=== PATIENT | male | born 1960 | race African-American/Black ===

== ENCOUNTER 2016-07-02 11:26 | Inpatient (IN) | payer MEDICAID ==
[~2016-07-02] VITALS: Ht 185.4 cm; Wt 86.8 kg
--- NOTE | ~2016-07-02 | HEMODYNAMI ---
PATIENT:ELENA RAMOS MEDICAL RECORD: [id number] : 56 [id number] ADMISSION DATE: 07/02/16 Generatedon:07/03/201616:43 Patient name: ELENA RAMOS Patient #: [id number] SSN: [id number] : 1960 Date of study: 07/03/2016 Page: Of Hemodynamic Procedure Report Patient Data Patient Demographics Procedure consent was obtained First Name: ELENA Gender: Male Last Name: RICHARD : 1960 [facility] Initial: L Age: 55 year(s) Patient #: [id number] Race: Black SSN: [id number] Additional ID: [id number] Contact details [address]: [address] [place] [address] [address] State: [place] City: [place] Zip code: [address] Past Medical History Allergies: No known allergies Admission Admission Data Admission Date: 07/02/2016 Admission Time: 15:12 Arrival Date: 07/02/2016 Arrival Time: 0:00 Admit Source: Other Insurance Payor: Medicaid Room #: D.2106 Height (in.): 72 BSA: 1.96 (m2) Height (cm.): 182.88 BMI: 22.24 (kg/m2) Weight (lbs.): 164 Weight (kg.): 74.39 Lab Results Lab Result Date: 07/03/2016 Lab Result Time: 0:00 Biochemistry Name Units Result Min Max BUN mg/dl 37 --(----)-* 7 18 Creatinine mg/dl 1.8 --(----)-* 0.6 1.3 CBC Name Units Result Min Max Hemoglobin g/dl 12 *-(----)-- 13.5 17.5 Procedure Procedure Types Cath Procedure Diagnostic Procedure LH LH w/Coronaries PCI Procedure Coronary Stent Initial Procedure Description Procedure Date Procedure Date: 07/03/2016 Procedure Start Time: 16:19 Procedure End Time: 16:37 Procedure Staff Name Function Boy Hernandez MD Performing Physician Nanci Cruz RN Nurse Shahla Morel RT Monitor Lauro Zambrano RT Scrub Indication Angina Procedure Data Cath Procedure Fluoroscopy Diagnostic fluoroscopy Total fluoroscopy Time: 4.4 time: 4.4 min min Diagnostic fluoroscopy Total fluoroscopy dose: dose: 391.12 mGy 391.12 mGy Contrast Material Contrast Material Type Amount (ml) Isovue 370 81 Entry Location Entry Primary Successful Side Size Upsize Upsize Entry Closure Howell ccessful Closure Location (Fr) 1 (Fr) 2 (Fr) Remarks Device Remarks Radial Right 6 Fr Mechanical artery Short Compression Estimated blood loss: 5 ml Diagnostic catheters Device Type Used For End Catheter Placement Terumo Optitorque 5Fr Multi-vessel Harrington 4.5 catheter Angiography Procedure Complications No complications Procedure Medications Medication Administration Route Dosage Oxygen NC 2 l/min Lidocaine 2% added to field 20 Heparin Flush Bag added to field 2 bags (1000units/500ml NS) 0.9% NaCl I.V. 100 ml/hr Versed I.V. 1 mg Fentanyl I.V. 50 mcg Fentanyl I.V. 50 mcg Heparin Bolus I.V. 4000 units Integrilin (Bolus I.V. 6.8 ml 2mg/ml) Radial Cocktail I.A. 1 syringe (Verapomil 2mg/Nitro 400mcg/Heparin 1500units) Plavix P.O. 600 mg Hemodynamics Rest BSA: 1.96 (m2) HGB: 12 (g/dl) O2 Consumption: Estimated: 252.13 (ml/min) O2 Cons umption indexed: Estimated:128.64 (ml/min/m) Heart Rate: 98 (bpm) Pressure Samples Time Site Value (mmHg) Purpose Heart Use Rate(bpm) 16:22 LV 70/3,1 Snapshot 98 Snapshots Pre Cath Intra NCS Post Cath Vital Signs Time Heart Resp SPO2 NIBP (mmHg) Rhythm Pain Sedation Rate (ipm) (%) Status Level (bpm) 16:03:06 96 17 97 122/97(109) NSR 0 (11) 10(A) , No pain 16:08:05 92 17 95 105/69(83) NSR 0 (11) 10(A) , No pain 16:12:13 84 16 95 99/71(93) NSR 0 (11) 10(A) , No pain 16:16:23 78 15 95 61/45(54) NSR 0 (11) 9(A) , No pain 16:20:08 88 20 100 132/97(117) NSR 0 (11) 9(A) , No pain 16:24:12 94 16 100 109/79(101) NSR 0 (11) 9(A) , No pain 16:28:16 91 15 99 99/84(95) NSR 0 (11) 9(A) , No pain 16:32:18 90 15 100 101/79(90) NSR 0 (11) 9(A) , No pain 16:36:19 90 16 99 114/82(86) NSR 0 (11) 10(A) , No pain Medications Time Medication Route Dose Verified Delivered Reason Note s Effectiveness by by 16:04:40 Oxygen NC 2 l/min Boy Buffie used for David Cruz RN procedure 16:04:47 Lidocaine 2% added 20ml Boy Buffie used for to vial David Cruz RN procedure field 16:04:54 Heparin Flush added 2 bags Boy Buffie used for Bag to David Cruz RN procedure (1000units/500ml field NS) 16:05:04 0.9% NaCl I.V. 100 Boy Buffie Per physician ml/hr David Cruz RN 16:13:41 Versed I.V. 1 mg Boy Buffie for sedation David Cruz RN 16:13:47 Fentanyl I.V. 50 mcg Boy Buffie for sedation David Cruz RN 16:20:05 Fentanyl I.V. 50 mcg Boy Buffie for sedation David Cruz RN 16:20:51 Radial Cocktail I.A. 1 Boy Buffie for (Verapomil syringe David Cruz RN vasodilation 2mg/Nitro 400mcg/Heparin 1500units) 16:26:14 Heparin Bolus I.V. 4000 Boy Buffie for veri fied units David Cruz RN anticoagulation with dr hernandez 16:27:49 Integrilin I.V. 6.8 ml Boy Buffie for (Bolus 2mg/ml) David Cruz RN antiplatelet therapy 16:42:18 Plavix P.O. 600 mg Boy Buffie for David Cruz RN antiplatelet therapy Procedure Log Time Note 15:40:59 Lauro Zambrano RT(R) sent for patient. Start room use. 15:50:18 Diagnostic Cath Status : Elective 15:50:54 Indication : Angina 15:51:06 Time tracking: Regular hours 15:51:10 Plan of Care:Hemodynamics will remain stable., Cardiac rhythm will remain stable., Comfort level will be maintained., Respiratory function will remain adequate., Patient/ family verbilizes understanding of procedure., Procedure tolerated without complication., Recovers from procedure without complications.. 15:51:18 [facility] Med [facility] Alert and oriented. Tansferred to table in Supine position. 15:51:19 Warm blankets applied, and faisal hugger turned on for patient comfort. 15:51:19 Correct patient and procedure confirmed by team. 15:51:21 Signed procedure consent form obtained from patient. 16:02:09 ECG and BP/O2 sat monitors applied to patient. 16:02:10 Vital chart was started 16:02:44 Lab Result : Hemoglobin 12 g/dl 16:02:44 Lab Result : Creatinine 1.8 mg/dl 16:02:44 Lab Result : BUN 37 mg/dl 16:04:40 Oxygen 2 l/min NC was given by Nanci Cruz RN; used for procedure; 16:04:47 Lidocaine 2% 20ml vial added to field was given by Nanci Cruz RN; used for procedure; 16:04:54 Heparin Flush Bag (1000units/500ml NS) 2 bags added to field was given by Nanci Cruz RN; used for procedure; 16:05:04 0.9% NaCl 100 ml/hr I.V. was given by Nanci Cruz RN; Per physician; 16:05:37 Baseline sample Acquired. 16:05:42 Rhythm: sinus rhythm 16:05:43 Full Disclosure recording started 16:05:49 H&P Date Dictated: 07/03/2016 New H&P dictated by physician.. 16:05:50 Pre-procedure instructions explained to patient. 16:05:51 Pre-op teaching completed and patient verbalized understanding. 16:05:52 Family in waiting room. 16:05:54 Patient NPO since Midnight. 16:05:59 Is the patient allergic to Iodine/contrast media? No. 16:06:00 Was the patient premedicated? No 16:11:25 Is patient on blood thinner?No 16:11:28 Patient diabetic? Yes. 16:11:30 If diabetic: On Metformin? No 16:11:33 Previous problem with sedation/anesthesia? No ? 16:11:35 Snore? No 16:11:37 Sleep apnea? No 16:11:38 Deviated septum? No 16:11:38 Opens mouth fully? Yes 16:11:39 Sticks out tongue? Yes 16:11:41 Airway obstruction? No ? 16:11:46 Dentures? Yes out 16:11:49 Pre procedure: right dorsailis pedis pulse 1+ Palpable, but thready & weak; easily obliterated 16:11:52 Patient pain scale 0/10 ?. 16:12:06 IV patent on arrival in right wrist with 0.9% NaCl at [facility]. 16:12:10 Lab results completed and on chart. 16:12:14 Right Radial & Right Groin area was prepped with chlora-prep and draped in sterile fashion 16:12:16 Alarms reviewed by R. N. 16:12:16 Sharps counted by scrub and verified by R.N. 16:12:18 Physician arrived 16:12:18 --------ALL STOP TIME OUT------ 16:12:19 Final Timeout: patient, procedure, and site verified with staff and physician. All members of the team are in agreement. 16:12:21 Right Radial & Right Groin site verified by team. 16:12:24 Physical assessment completed. ASA score P 3 - A patient with severe systemic disease as per Boy Hernandez MD. 16:12:27 Sedation plan: IV Moderate Sedation Versed, Fentanyl 16:12:31 Use device set Radial Dx 16:12:32 Acist Syringe opened to sterile field. 16:12:32 Cardinal Cath Pack opened to sterile field. 16:12:32 Bag Decanter opened to sterile field. 16:12:33 Terumo 6Fr Slender Glidesheath opened to sterile field. 16:12:33 St John 260cm J .035 wire opened to sterile field. 16:12:34 Acist Hand Control opened to sterile field. 16:12:34 Acist Manifold opened to sterile field. 16:12:35 Tegaderm 4 x 4 opened to sterile field. 16:12:36 IV Extension Set opened to sterile field. 16:13:41 Versed 1 mg I.V. was given by Nanci Cruz RN; for sedation; 16:13:47 Fentanyl 50 mcg I.V. was given by Nanci Cruz RN; for sedation; 16:13:52 Admit Source: Other 16:13:54 Arrival Date: 07/02/2016 12:00:00 AM 16:14:19 Insurance Payor : Medicaid 16:18:03 Patient Height : 182.88 cm 16:18:06 Patient Weight : 74.39 kg 16:18:16 Procedure started. 16:19:25 Local anesthetic to right radial artery with Lidocaine 2% by Boy Hernandez MD.INITIAL ACCESS ONLY 16:20:05 Fentanyl 50 mcg I.V. was given by Nanci Cruz RN; for sedation; 16:20:29 A 6 Fr Short sheath was inserted into the Right Radial artery 16:20:51 Radial Cocktail (Verapomil 2mg/Nitro 400mcg/Heparin 1500units) 1 syringe I.A. was given by Nanci Cruz RN; for vasodilation; 16:21:13 A [employer] Optitorque 5Fr Harrington 4.5 catheter was advanced over the wire and used for Multi-vessel Angiography. 16:22:18 LV hemodynamics recorded. 16:22:19 LV gram done using ANDERS 16:22:21 Injector settings: Ml/sec: 5, Volume: 15, 16:22:32 EF : 15 % 16:22:52 LCA angiography performed. 16:23:58 Injector settings: Ml/sec: 3, Volume: 6, 16:24:02 RCA angiography performed. 16:24:06 Injector settings: Ml/sec: 3, Volume: 6, 16:24:17 Catheter removed. 16:24:18 Proceeding to intervention. 16:24:32 Roberts Whisper J 300cm 0.014 guide wire opened to sterile field. 16:24:33 [employer] BasixCompak Inflation Kit opened to sterile field. 16:26:14 Heparin Bolus 4000 units I.V. was given by Nanci Cruz RN; for anticoagulation; verified with dr hernandez 16:26:26 Cordis 6FR XBLAD 3.5 guide catheter opened to sterile field. 16:26:38 6 Fr xblad 3.5 guide catheter was inserted over the wire 16:26:53 Phoseon Technologyisper wire advanced. 16:27:49 Integrilin (Bolus 2mg/ml) 6.8 ml I.V. was given by Nanci Cruz RN; for antiplatelet therapy; 16:28:05 Wire advanced across lesion. 16:28:11 Inflation number: 1 A Sumner Sci Dooly 2.5 X 20 balloon was prepped and advanced across the Mid CX, then inflated to 13 PAUL for 0:10 (min:sec). 16:29:24 Wire removed. 16:30:16 Inflation Number: 2 A Promus Premier OTW 2.5 x 38 stent was prepped and advanced across the Mid CX. The stent was deployed at 17 PAUL for 0:10 (min:sec). 16:31:16 Stent catheter was removed intact over wire. 16:32:40 Inflation Number: 1 A Promus Premier OTW 2.5 x 24 stent was prepped and advanced across the Prox CX. The stent was deployed at 17 PAUL for 0:10 (min:sec). 16:33:58 Stent catheter was removed intact over wire. 16:33:59 Wire removed. 16:34:00 Guide catheter removed. 16:34:10 Terumo TR Band Standard opened to sterile field. 16:36:29 Sheath removed intact; hemostasis achieved with Mechanical Compression to the Right Radial artery. 16:36:31 Procedure ended.(Physican Out) 16:36:36 Fluoroscopy time 04.40 minutes. 16:36:43 Flurop Dose total: 391.12 16:36:43 Fluoroscopy dose: 391.12 mGy 16:36:54 Contrast amount:Isovue 370 81ml. 16:36:55 Sharps counted by scrub and verified by R.N. 16:36:57 TR band inflated with 10cc of air. 16:37:06 Post right radial artery:stable 16:37:08 Post Procedure Pulses reassessed and unchanged 16:37:11 Post procedure rhythm: unchanged. 16:37:13 Estimated blood loss: 5 ml 16:37:15 Post procedure instruction explained to patient.Patient verbalizes understanding. 16:37:18 Patient needs reinforcement of post procedure teaching. 16:37:27 Procedure type changed to Cath procedure, Diagnostic procedure, LHC, LHC w/Coronaries, PCI procedure, Coronary Stent Initial 16:37:28 Procedure and supply charges have been captured, reviewed, submitted and are correct. 16:37:33 Procedure Complication : No complications 16:37:35 Vital chart was stopped 16:37:36 See physician's report for complete and final results. 16:37:[address] [facility]. 16:37:[address] [facility] with Stretcher. 16:37:52 Procedure ended. 16:37:52 Full Disclosure recording stopped 16:38:09 ACC-PCI Only Patient was given prescriptions, or instructed by Boy Hernandez MD to start/continue the following medications upon discharge: Plavix 16:38:10 End room use (Document Last) 16:42:18 Plavix 600 mg P.O. was given by Nanci Cruz RN; for antiplatelet therapy; Intervention Summary Intervention Notes Time ActionType Lesion and Equipment Action# Pressure Duration Attributes Used 16:28:11 Inflate Mid CX Sumner 1 13 00:10 balloon Sci Dooly 2.5 X 20 balloon 16:30:16 Place stent Mid CX Promus 2 17 00:10 Premier OTW 2.5 x 38 stent 16:32:40 Place stent Prox CX Promus 1 17 00:10 Premier OTW 2.5 x 24 stent Device Usage Item Name Manufacture Quantity Catalog Number Hospital Part Current Mini mal Lot# / Charge Number Stock Stock Serial# Code Acist Acist 1 51889 209500 350059 382768 20 Syringe Medical Systems Inc Cardinal Cardinal 1 [id number] 414863 58338 056504 5 Cath Pack Health Bag Microtek 1 2001S 527071 74464 775548 5 [employer] Terumo 6Fr Terumo 1 [id number] 727632 050016 935553 [address] [facility] 1 799116 841637 146471 624155 30 260cm J .035 wire Acist Hand Acist 1 33387 132095 661182 610250 5 Control Medical Systems Inc Acist Acist 1 33911 372158 017681 574906 5 Manifold Medical Systems Inc Tegaderm 4 3M 1 1626W 468846 065320 753074 5 x 4 IV Hospira 1 90837-01 638421 68786 100268 5 Extension Set Terumo Terumo 1 40-7559 522948 136434 940293 5 Optitorque 5Fr Harrington 4.5 catheter Roberts Roberts 1 [id number] 332826 985007 461645 5 Whisper J Vascular 300cm 0.014 guide wire Merit Merit 1 HY9679 627285 307510 612783 15 [employer] Medical Inflation Kit Cordis 6FR Cardinal 1 [id number] 132696 482338 266703 10 XBLAD 3.5 Health guide catheter Sumner Sci Sumner 1 [id number] 450449 350565 899812 1 [id number] Dooly Julep 2.5 X 20 balloon Promus Sumner 1 [id number] 346732 443348 5 [id number] Premier OTW Scientific 2.5 x 38 stent Promus Sumner 1 [id number] 930531 820833 5 [id number] Premier OTW Scientific 2.5 x 24 stent Terumo TR Terumo 1 [id number] 028540 793556 438998 40 Band Standard Signature Audit [place] Stage Time Signature Unsigned Intra-Procedure 07/03/2016 Shahla Morel 4:43:48 PM RT(R) Signatures Monitor : Shahla Morel RT Signature : Date : Time : [id number] [place] [address]
[~2016-07-02 11:26] MED LIST: ALPHAGAN P15 ML EACH EYE; ASPIRIN81 MG PO; BACTRIM DS TABL1 TAB PO; COREG 3.1253.125 MG PO; COREG6.25 MG PO; EFFIENT10 MG PO; FLUTICASONE PRO16 GM NASAL; GLUCOPHAGE500 MG PO; GLYBURIDE2.5 MG PO; GLYBURIDE5 MG PO; HYDROCODON-ACE1 EAC7 PO; HYDROCODONE-APA1 TAB PO; K-DUR20 MEQ PO; LASIX20 MG PO; LASIX40 MG PO; PEPTO-BISMOL262 M1 PO; PLAVIX75 MG PO; PRAVACHOL20 MG PO; PROTONIX40 MG PO; VIBRAMYCIN 100100 MG PO; ZYLOPRIM100 MG PO
[2016-07-02 12:14] LABS: BASOPHILS 0.3 % (0.0-2.0); EOSINOPHILS 2.1 % (0-7); HEMATOCRIT 40.9 % (42.0-54.0); HEMOGLOBIN 12.6 g/dL (13.5-17.5); IMMATURE GRANULOCYTES 0.2 % (0-5); LYMPHOCYTES 14.1 % (15-50); MCH 27.1 pg (26.0-34.0); MCHC 30.8 g/dL (31.0-37.0); MONOCYTES 8.5 % (2-11); NEUTROPHILS 74.8 % (40-80); PLATELET COUNT 186 10x3/uL (130-400); RBC 4.65 10x6/uL (4.20-6.10); WBC 6.1 10x3/uL (4.8-10.8)
[2016-07-02 12:53] LABS: ALBUMIN 3.1 g/dL (3.4-5.0); ALKALINE PHOSPHATASE 301 U/L (46-116); ALT (SGPT) 45 U/L (10-68); CALCIUM 9.1 mg/dL (8.5-10.1); CARBON DIOXIDE 30.7 mmol/L (21.0-32.0); CHLORIDE - SERUM 97 mmol/L (98-107); CKMB 1.1 U/L (0.0-3.6); CREATINE KINASE 56 UL (21-232); MAGNESIUM - SERUM 2.3 mg/dL (1.8-2.4); POTASSIUM - SERUM 3.8 mmol/L (3.5-5.1); PRO BNP 9448 pg/mL (0-125); PROTEIN - SERUM 7.2 g/dL (6.4-8.2); SODIUM 136 mmol/L (136-145); UREA NITROGEN 38 mg/dL (7-18); eGFR NON AFRICAN AMERICAN 37 mL/min (90-120)
[2016-07-02 13:06] LABS: CALC OSMOLALITY 299 mosm/kg (275-300); GLUCOSE 434 mg/dL (74-106)
--- NOTE | 2016-07-02 16:21 | NUR ---
TRANSFER FROM ER. OREINTED TO ROOM. CALL LIGHT IN REACH. WILL CONT. PLAN OF CARE.
[2016-07-02] MEDS ORDERED: GLYBURIDE5 M1 PO (16:25)
[2016-07-02] MEDS ORDERED: GLUCOPHAGE500 MG PO (16:27)
[2016-07-02 16:31] VITALS: BP 116/92; BMI 21.6
[2016-07-02] MEDS ORDERED: COREG 3.1253.125 MG PO (16:43)
[2016-07-02] MEDS ORDERED: METOLAZONE5 MG PO (16:47)
[2016-07-02] MEDS ORDERED: MOBIC7.5 MG PO (16:48)
[2016-07-02 20:00] VITALS: BP 115/77
[2016-07-02 20:08] LABS: CKMB 1.4 U/L (0.0-3.6); CREATINE KINASE 50 UL (21-232)
[2016-07-02 20:09] LABS: TROPONIN-I 0.325 ng/mL (0.000-0.060)
[2016-07-03] VITALS: BP 113/89; BP 116/75
--- NOTE | 2016-07-03 00:25 | NUR ---
VITAMIN MANAGER AT BEDSIDE TO OBTAIN VITALS, CALL LIGHT IN REACH. WILL CONTINUE WITH PLAN OF CARE.
[2016-07-03 00:29] LABS: CKMB 1.6 U/L (0.0-3.6); CREATINE KINASE 52 UL (21-232)
--- NOTE | 2016-07-03 00:29 | NUR ---
RESTING IN BED. ALERT ORIENTED CONVERSANT. STATES THAT HE IS LEGALLY BLIND. NO ACUTE DISTRESS NOTED. NO DISTRESS NOTED.
[2016-07-03 00:30] LABS: TROPONIN-I 0.335 ng/mL (0.000-0.060)
[2016-07-03 02:36] LABS: APPEARANCE CLEAR (CLEAR); BILIRUBIN NEGATIVE (NEGATIVE); COLOR DK YELLOW (YELLOW); GLUCOSE 1000 mg/dL (NEGATIVE); KETONE NEGATIVE (NEGATIVE); NITRITE NEGATIVE (NEGATIVE); PROTEIN 2+ mg/dL (NEGATIVE)
[2016-07-03 02:44] LABS: BACTERIA FEW /hpf (NONE SEEN); EPITHELIAL CELLS 0-5 /hpf (0-5); LEUKOCYTE ESTERASE TRACE (NEGATIVE); RED CELLS - URINE 0-5 /hpf (0-5)
[2016-07-03 02:45] LABS: HYALINE CAST 0-5 /lpf (NONE SEEN); MUCUS <1+ /lpf (NONE SEEN)
[2016-07-03 06:16] LABS: BASOPHILS 0.3 % (0.0-2.0); EOSINOPHILS 2.1 % (0-7); LYMPHOCYTES 17.5 % (15-50); MCH 27.5 pg (26.0-34.0); MCHC 31.6 g/dL (31.0-37.0); MONOCYTES 11.5 % (2-11); NEUTROPHILS 68.6 % (40-80); PLATELET COUNT 166 10x3/uL (130-400); RBC 4.37 10x6/uL (4.20-6.10); RDW 14.9 % (11.5-14.5); WBC 5.7 10x3/uL (4.8-10.8)
[2016-07-03 06:52] LABS: CALCIUM 9.6 mg/dL (8.5-10.1); CARBON DIOXIDE 29.6 mmol/L (21.0-32.0); CHLORIDE - SERUM 100 mmol/L (98-107); CKMB 1.4 U/L (0.0-3.6); CREATINE KINASE 46 UL (21-232); CREATININE - SERUM 1.8 mg/dL (0.6-1.3); MAGNESIUM - SERUM 2.2 mg/dL (1.8-2.4); PHOSPHOROUS 3.1 mg/dL (2.5-4.9); POTASSIUM - SERUM 3.8 mmol/L (3.5-5.1); SODIUM 137 mmol/L (136-145); UREA NITROGEN 37 mg/dL (7-18); eGFR NON AFRICAN AMERICAN 41 mL/min (90-120)
[2016-07-03 06:53] LABS: CALC OSMOLALITY 291 mosm/kg (275-300); GLUCOSE 261 mg/dL (74-106); TROPONIN-I 0.284 ng/mL (0.000-0.060)
--- NOTE | 2016-07-03 07:40 | NUR ---
ASSESSMENT DONE. PT SLEEPING. APPEARS COMFORTABLE. RESP EVEN AND UNLABORED. CALL LIGHT WITH IN REACH. WILL CONT. TO MONITOR.
[2016-07-03 08:00] VITALS: BP 111/80
--- NOTE | 2016-07-03 09:22 | NUR ---
CONSENTS SIGNED FOR HEART CATH AND BLOOD PRODUCTS. NURSE READ CONSENTS TO PT IN WHICH PT AGREED AND SIGNED.
--- NOTE | 2016-07-03 09:41 | NUR ---
RESP UL ON . RESTS IN BED WITH EYES CLOSED. CALL LIGHT IN REACH. WILL CONT. PLAN OF CARE.
--- NOTE | 2016-07-03 10:54 | CN ---
PATIENT NAME:ELENA RAMOS MEDICAL RECORD: [id number] : 56 LOCATION:[facility].2106 ADMIT DATE: 07/02/16 ACCOUNT: [id number] CONSULTING PHYSICIAN: ISAIAS RAMSAY MD REFERRING PHYSICIAN: VINNIE PERSON M.D. DATE OF CONSULTATION: 07/03/2016 Surgical Consultation CONSULTING PHYSICIAN: Isaias Ramsay MD REQUESTING PHYSICIAN: Vinnie Person MD REASON FOR CONSULTATION: Right lower extremity venous stasis ulcer. HISTORY OF PRESENT ILLNESS: Mr. Ramos is a 55-year-old -[place] male who was admitted to the hospital yesterday for CHF exacerbation and worsening shortness of breath. According to the patient and his medical record, he was recently fired by his primary care physician and he has run out of his medications. He has a history of cardiomyopathy and CHF as well as uncontrolled diabetes and acute kidney injury. His main complaint in the Emergency Room yesterday was chest pain at rest. He says the pain waxes and wanes. It has improved now. He also complains of worsening lower extremity edema and new right lower extremity wound. PAST MEDICAL HISTORY: Multiple sclerosis, glaucoma, blindness, diabetes, coronary artery disease, and congestive heart failure, chronic kidney disease, hypertension, cardiomyopathy. PAST SURGICAL HISTORY: Cardiac stents. He has had a left toe amputation. ALLERGIES: No known drug allergies. MEDICATIONS: Include allopurinol, pravastatin, Lasix, aspirin, glyburide, metformin, carvedilol, meloxicam, Protonix and hydrocodone. FAMILY HISTORY: Cardiovascular disease in his parents as well as his siblings. SOCIAL HISTORY: He is a former smoker. He denies any alcohol or recreational drug use. REVIEW OF SYSTEMS: A 12-point review of systems was obtained. Pertinent positives and negatives as per the HPI. PHYSICAL EXAMINATION: VITAL SIGNS: Temperature 97.9, heart rate 98, respirations 18, blood pressure 111/80, and satting 100% on 2 liters nasal cannula. GENERAL: This is an ill-appearing cachectic male. PSYCHIATRIC: He is alert and oriented times 3. EYES: The extraocular muscles were intact. EAR, NOSE AND THROAT: Mucous membranes are dry. NECK: He has poor dentition. CARDIOVASCULAR: Normal sinus rhythm. LUNGS: Decreased breath sounds bilaterally. ABDOMEN: Soft, nontender, and nondistended. CONSULT REPORT [id number] ELENA RAMOS SKIN: Warm, dry with normal turgor, except in the area of his bilateral lower extremities below. EXTREMITIES: On his bilateral lower extremities, he has dry flaky skin. He hairless from the mid shins down consistent with chronic lower extremity stasis as well as likely arterial insufficiency. The patient likely has peripheral vascular disease with he has got brawny edema bilaterally. He is neurovascularly intact. He has palpable femoral and popliteal pulses. NEUROLOGIC: GCS of 15. Moving all 4 extremities equally. IMAGING: Chest x-ray was reviewed, which shows right pleural effusion and pneumonia. LABORATORY DATA: Please see electronic medical record for full list of laboratory results. IMPRESSION: A 55-year-old male admitted to the hospital for chest pain, congestive heart failure exacerbation, pneumonia, uncontrolled diabetes and right lower extremity venous stasis ulcer. The patient has been admitted to the medical unit. Cardiology consultation has been obtained to recommend a left heart catheterization today. Nephrology has been consulted. A renal ultrasound has been ordered and he is being treated with diuretics. He is on IV antibiotics for pneumonia, right lower extremity venous stasis ulcer. Wound care consult. I have placed a wound care consult. Recommend Xeroform gauze dressings with compression wrap for compression stockings, 2-3 pillow lower extremity elevation at all times while at rest. Venous Doppler ultrasound to rule out deep venous thrombosis and venous stasis. TRANSINT:[id number] Voice Confirmation ID: [id number] DOCUMENT ID: [id number] ISAIAS RAMSAY MD at 1054 CC: [id number] DICTATION DATE: 07/03/16 0856 CREW CAR DRIVER: 07/03/16 1000 ADM IN [facility] [address] [place] [address]
--- NOTE | 2016-07-03 11:00 | NUR ---
PT STATES IF HIS PROCEDURE ISN'T DONE SOON, AND HE CANNOT EAT SOON HE IS GOING TO CALL HIS SON TO BRING HIM SOME BURGER TREY.
[2016-07-03 11:04] VITALS: Ht 185.4 cm; Wt 86.8 kg
--- NOTE | 2016-07-03 11:41 | NUR ---
PT CALLED NURSE INTO ROOM AND ASKED WHERE HIS TRASHCAN WAS. STATES IF HIS TRASHCAN GETS MOVED FROM BESIDE HIS BED AGAIN HE IS GOING TO START THROWING HIS SNOTTY TISSUES IN THE FLOOR FOR THE NURSES TO CLEAN UP.
[2016-07-03 12:00] VITALS: BP 107/77
--- NOTE | 2016-07-03 13:03 | NUR ---
CALLED [facility] TO FIND OUT HOW LONG IT WILL BE UNTIL PT GOES FOR PROCEDURE. WAS TOLD IT WILL BE A FEW HOURS D/T OUTPATIENT BEING BACKED UP. PT STATES IF HE HAS NOT GONE BY 2:00 HE IS CALLING SOMEONE TO BRING HIM SOME FOOD. INFORMED PT THAT IF NURSE SEES ANYONE BRING FOOD INTO ROOM THAT THEY WILL BE INFORMED PT CANNOT HAVE IT. ALSO INFORMED PT THAT IF HE EAT THE PROCEDURE WILL BE PUT OFF UNTIL TOMORROW AT LEAST. PT STATES HE DO NOT CARE IF IT IS DONE OR NOT. STATES HE SON MADE HIM COME TO THE HOSPITAL AND HE DO NOT WANT TO BE HERE.
--- NOTE | 2016-07-03 15:44 | NUR ---
PT TO MAINTENANCE SERVICES DISPATCHER VIA BED
--- NOTE | 2016-07-03 17:15 | NUR ---
PT BACK FROM BUCKLE COVERER. SLEEPING. WEARING O2 VIA NA AT 3 LITERS. TR BAND TO RIGHT WRIST. NO S/S OF BLEEDING. WILL CONT. TO MONITOR.
--- NOTE | 2016-07-03 18:13 | NUR ---
DRESSING DONE TO PT'S RIGHT LOWER EXTREMITY. WOUNDS CLEANED WITH WOUND FIRE PREVENTION BUREAU CAPTAIN PAT DRY. XEROFORM APPLIED, THEN 4X4, THEN WRAPPED WITH KERLEX AND SIDNEY WRAP APPLIED PER DR. RAMSAY TO ADD COMPRESSION. PT SLEEPING. S/P HEART CATH. AROUSES TO VOICE, BUT VERY DROWSEY. TR BAND TO RIGHT WRIST. NO S/S OF BLEEDING. WILL CONT. TO MONITOR.
--- NOTE | 2016-07-04 01:15 | NUR ---
PT RESTING SOUNDLY WITHOUT C/O OR DISTRESS NOTED. CALL LIGHT IS WITHIN REACH. NO NEEDS VOICED. WILL MONITOR.
[2016-07-04 01:32] VITALS: BP 82/56
[2016-07-04 05:59] VITALS: BP 113/77
--- NOTE | 2016-07-04 07:47 | NUR ---
AM ROUNDING DONE WITH PATIENT RESTING, EYES CLOSED. ON HEART MONITOR SHWOING SR, HR 97. ON 2L PER NC. RIGHT FOREARM SEEN WITH SALINE LOCK. IN REPORT, PATIENT IS BLIND. TR BAND SEEN TO RIGHT WRIST. WILL CONTINUE TO MONITOR.
[2016-07-04 08:00] VITALS: BP 112/81
[2016-07-04 08:29] LABS: BASOPHILS 0.4 % (0.0-2.0); EOSINOPHILS 2.4 % (0-7); HEMATOCRIT 39.2 % (42.0-54.0); HEMOGLOBIN 12.1 g/dL (13.5-17.5); IMMATURE GRANULOCYTES 0.4 % (0-5); LYMPHOCYTES 17.8 % (15-50); MCH 26.9 pg (26.0-34.0); MCHC 30.9 g/dL (31.0-37.0); MCV 87.1 fL (80.0-100.0); MEAN PLATELET VOLUME 11.7 fL (7.4-10.4); MONOCYTES 10.9 % (2-11); NEUTROPHILS 68.1 % (40-80); PLATELET COUNT 168 10x3/uL (130-400); WBC 5.1 10x3/uL (4.8-10.8)
[2016-07-04 09:02] LABS: CALCIUM 9.6 mg/dL (8.5-10.1); CREATININE - SERUM 2.1 mg/dL (0.6-1.3); MAGNESIUM - SERUM 2.3 mg/dL (1.8-2.4); PHOSPHOROUS 3.8 mg/dL (2.5-4.9)
--- NOTE | 2016-07-04 09:33 | NUR ---
CALLED TO ROOM PATIENT'S CALL LIGHT WAS ON. ASKED PATIENT IF I COULD HELP HIM I ALSO HAD HIS MORNING MEDS. HE REPLIED, "I GUESS THAT DOCTOR CAN'T READ". WHEN ASKED WHAT HE MEANT, HE REPLIED THERE IS A SIGN ON HIS DOOR AND THE DOCTOR DID NOT SHUT IT. I RELPIED THAT I WOULD WHEN I GIVE HIM HIS MEDICATIONS FOR THE MORNING. I ASKED HIS DATE OF AND NAMES AND HE GOT A VERY NASTY ATTITUDE TOWARDS ME. I ASKED HIM IF THERE WAS A PROBLEM AND HE REPLIED " WHY DOES EVERY ONE ASK ME THIS AND I AM TIRED OF IT" I REPLIED THAT IT WAS PROTOCOL FOR THE MEDCAITONS TO BE GIVEN AND ASK IF HE KNEW WHAT MEDS HE WAS TAKING. HE REPLIED "NO, AND WHY DO YOU HAVE TO ASK ME THIS". AGAIN, I ASKED WHY THE ATTITUDE. HE TURNED HIS HEAD AND WOULD NOT REPLY. MEDICATIONS GIVEN. DOOT SHUT I LEFT THE ROOM.
[2016-07-04 12:33] VITALS: BP 100/70
[2016-07-04 16:00] VITALS: BP 90/67
--- NOTE | 2016-07-04 16:01 | NUR ---
1525-DRESSING CHANGE PERFORMMED TO RIGHT LOWER LEG ORDERED. TOLERATED WELL.
--- NOTE | 2016-07-04 18:12 | NUR ---
1800-CALL LIGHT IN ROOM GOING OFF. OPENED DOOR AND PATIENT IS ON HIS KNEES IN THE PRAYING POSITION UP AGAINST THE BED. WHEN ASKED WHAT HAPPEN, PATIENT REPORTED THAT HE FELT HIS KNEES GIVING OUT ON HIM AND KNEELED DOWN. WHEN ASKED IF HE HURT ANYTHING HE REPLIED. NO.
[2016-07-04 20:30] VITALS: BP 105/79
--- NOTE | 2016-07-04 23:33 | NUR ---
RESTING QUIETLY ON RIGHT SIDE WITH EYES CLOSED. RR EVEN U/L. NO S/S OF DISTRESS OR DISCOMFORT. BED IS LOW WITH CALL LIGHT IN REACH.
[2016-07-05 04:30] VITALS: BP 104/70
--- NOTE | 2016-07-05 07:35 | NUR ---
PT LAYING DOWN IN BED SLEEPING NO S/S DISTRESS NOTED.
[2016-07-05 09:00] VITALS: BP 103/79
[2016-07-05 11:56] LABS: ALBUMIN 2.7 g/dL (3.4-5.0); ANION GAP 13.6 mmol/L (8-16); BILIRUBIN - TOTAL 1.16 mg/dL (0.2-1.3); CALCIUM 9.3 mg/dL (8.5-10.1); CARBON DIOXIDE 26.1 mmol/L (21.0-32.0); CREATININE - SERUM 2.2 mg/dL (0.6-1.3); PHOSPHOROUS 3.8 mg/dL (2.5-4.9); POTASSIUM - SERUM 4.7 mmol/L (3.5-5.1); PROTEIN - SERUM 6.3 g/dL (6.4-8.2)
[2016-07-05 11:58] VITALS: BP 92/63
--- NOTE | 2016-07-05 16:03 | NUR ---
PT WANTED HIS PIV IN R FA DC SAID IT WAS "ITCHING". DC WITH CATHETER TIP INTACT. PT IS REFUSING RESITE AT THIS TIME.
[2016-07-05 17:14] VITALS: BP 96/70
--- NOTE | 2016-07-05 17:46 | NUR ---
PT WANTS TO LEAVE AMA. PT RECEIVED TRAY AND IT WAS A HAMBURGER PT DIDNT WANT THE HAMBURGER AND REQUESTED SAL[place]URY STEAK. I PUT IN AN ORDER FOR [place] STEAK. THEN PT REFUSED TO TAKE THIS BECAUSE HE WANTED MASHED POTATOES. THE PROCESS DESIGN ENGINEER TOLD PT HE WAS NOT ALOUD TO HAVE POTATOES BECAUSE HE WAS ON A RENAL DIET. PT BECAME ANGRY AND SAID HE WAS LEAVING AMA. I TOLD PROCESS DESIGN ENGINEER TO GO AHEAD AND BRING PT UP POTATOES SINCE HE IS NONCOMPLIANT AND TO KEEP PT IN HOSPITAL. PT STILL REFUSING TO STAY. PAGED DR PERSON. EXPAINED TO PT THAT THIS IS NOT A GOOD DECISION AND THAT HE NEEDS TO STAY IN THE HOSPITAL TO RECEIVE THE CARE THAT HE NEEDS AND TO GET BETTER PT NOW CUSSING ME OUT AND TELLING ME TO "GET THE HELL OUT OF HIS ROOM...GET MY PAPERS NOW! IM NOT STAYING HERE ANY LONGER." GOT AMA FORM BEFORE PT GOT VIOLENT. PT SIGNED AMA FORM.
--- NOTE | 2016-07-05 18:15 | NUR ---
1800 Patient w/ multiple complaints today. DR Choi had planned for transfer to skilled facility at discharge for continued care for short term. Patient had PTCA procedure planned for 07/07/16. Patient advised the nurse he wanted to leave. She discussedhe risk leaving against medical advise. Primary nurse attempted to reach DR Choi who was in a Rapid Response situation. Nursing Command Center Officer aware. He also spoke with the patient. Patient signed AMA paperwork.
--- NOTE | 2016-07-05 18:16 | NUR ---
PT RIDE HERE TO GET HIM. AUTOMATIC DATA PROCESSING PLANNER WHEELED PT DOWNSTAIRS. STILL NO WORD FROM DR PERSON. PT DID SIGN AMA FORM. PLACING ON CHART.
--- NOTE | 2016-07-09 16:23 | OP ---
PATIENT NAME: ELENA RAMOS MEDICAL RECORD: [id number] :56 LOCATION:D.M2 D.2106 ADMISSION DATE:07/02/16 SURGEON: ALIX VICENTE MD DATE OF OPERATION: 07/03/2016 PROCEDURES: 1. PTCA stent left circumflex. 2. Left heart catheterization. 3. Selective coronary angiography. 4. Left ventriculogram. INDICATION: Angina, non-Q-wave myocardial infarction, coronary artery disease, cardiomyopathy, congestive heart failure and chronic systolic dysfunction. PROCEDURE IN DETAIL: After informed consent was obtained and after a detailed explanation of the risks, benefits as well as alternative therapies, the patient elected to proceed with angiogram and angioplasty. The right radial area was prepped and draped in normal sterile fashion. The right radial artery was cannulated via modified Seldinger technique with placement of 6-Japanese sheath. All catheters exchanged through this sheath. FINDINGS: The left ventriculogram was performed in standard 30-degree ANDERS view reveals global hypokinesis throughout all segments. Overall ejection fraction estimated at 10%. SELECTIVE CORONARY ANGIOGRAPHY: 1. Left main showed no significant angiographic disease. 2. Left anterior descending has 99% stenosis to the LAD and LAD diagonal. 3. Left circumflex has a 99% stenosis in the mid vessel. 4. Right coronary is small and nondominant. PTCA STENT OF THE LEFT CIRCUMFLEX: The stent used were 2.5 x 38 and 2.5 x 24 both Promus stents. Result was 0% residual stenosis. OVERALL IMPRESSION: Successful percutaneous transluminal coronary angioplasty stent of the left circumflex going from 99% initial stenosis. PLAN: For PTCA stent of the LAD and LAD diagonal in the near future. TRANSINT:[id number] Voice Confirmation ID: [id number] DOCUMENT ID: [id number] ALIX VICENTE MD at 1623 CC: [id number] DICTATION DATE: 07/03/16 1640 LINE LOCATOR: 07/03/16 1805 DIS IN 07/05/16 [place] [id number]
== END 2016-07-05 18:17 | disposition left against medical advice (07) | DRG 246 ==
LOC: D.ER 11:26 → D.M2 15:12
PROVIDERS: Emergency Medicine; Internal Medicine Interventional Cardiology; Internal Medicine Nephrology; ADMIT Family Medicine
PROC: B2111ZZ Fluoroscopy of Multiple Coronary Arteries using Low Osmolar Contrast (ICD-10-PCS; 2016-07-03)
PROC: B2151ZZ Fluoroscopy of Left Heart using Low Osmolar Contrast (ICD-10-PCS; 2016-07-03)
PROC: 027035Z Dilation of Coronary Artery, One Artery with Two Drug-eluting Intraluminal Devices, Percutaneous Approach (ICD-10-PCS; principal; 2016-07-03 13:30)
PROC: 4A023N7 Measurement of Cardiac Sampling and Pressure, Left Heart, Percutaneous Approach (ICD-10-PCS; 2016-07-03 13:30)
DX: I21.4 Non-ST elevation (NSTEMI) myocardial infarction (principal); J18.9 Pneumonia, unspecified organism; I13.0 Hypertensive heart and chronic kidney disease with heart failure and stage 1 through stage 4 chronic kidney disease, or unspecified chronic kidney disease; N18.4 Chronic kidney disease, stage 4 (severe); N17.9 Acute kidney failure, unspecified; I42.9 Cardiomyopathy, unspecified; I50.22 Chronic systolic (congestive) heart failure; I83.019 Varicose veins of right lower extremity with ulcer of unspecified site; E11.65 Type 2 diabetes mellitus with hyperglycemia; E11.21 Type 2 diabetes mellitus with diabetic nephropathy; I25.119 Atherosclerotic heart disease of native coronary artery with unspecified angina pectoris; D64.9 Anemia, unspecified; Z87.891 Personal history of nicotine dependence

== ENCOUNTER 2016-07-07 11:38 | Inpatient (IN) | payer MEDICAID ==
[~2016-07-07] VITALS: Ht 185.4 cm; Wt 67.7 kg
[~2016-07-07 11:38] MED LIST changes: +GLYBURIDE5 M1 PO; +METOLAZONE5 MG PO; +MOBIC7.5 MG PO
[2016-07-07 13:09] LABS: BASOPHILS 0 % (0.0-2.0); EOSINOPHILS 0 % (0-7); HEMATOCRIT 40.7 % (42.0-54.0); HEMOGLOBIN 12.9 g/dL (13.5-17.5); IMMATURE GRANULOCYTES 0.2 % (0-5); MCH 26.8 pg (26.0-34.0); MCHC 31.7 g/dL (31.0-37.0); MCV 84.6 fL (80.0-100.0); MONOCYTES 6.9 % (2-11); NEUTROPHILS 82.9 % (40-80); PLATELET COUNT 168 10x3/uL (130-400); RBC 4.81 10x6/uL (4.20-6.10); RDW 15.1 % (11.5-14.5); WBC 6.1 10x3/uL (4.8-10.8)
[2016-07-07 13:20] LABS: APPEARANCE CLEAR (CLEAR); BILIRUBIN NEGATIVE (NEGATIVE); COLOR DK YELLOW (YELLOW); GLUCOSE 50 mg/dL (NEGATIVE); KETONE SMALL mg/dL (NEGATIVE); LEUKOCYTE ESTERASE TRACE (NEGATIVE); NITRITE NEGATIVE (NEGATIVE); PROTEIN TRACE mg/dL (NEGATIVE); SPECIFIC GRAVITY 1.015 (1.005-1.020)
[2016-07-07 13:21] LABS: BACTERIA FEW /hpf (NONE SEEN); EPITHELIAL CELLS RARE /hpf (0-5); HYALINE CAST RARE /lpf (NONE SEEN); RED CELLS - URINE RARE /hpf (0-5); WHITE CELLS - URINE OCC /hpf (0-5)
[2016-07-07 13:48] LABS: ALBUMIN 3.2 g/dL (3.4-5.0); ANION GAP 21.4 mmol/L (8-16); BILIRUBIN - TOTAL 1.88 mg/dL (0.2-1.3); CALCIUM 9.8 mg/dL (8.5-10.1); CARBON DIOXIDE 24.7 mmol/L (21.0-32.0); CREATININE - SERUM 3.7 mg/dL (0.6-1.3); POTASSIUM - SERUM 5.1 mmol/L (3.5-5.1); PROTEIN - SERUM 6.5 g/dL (6.4-8.2)
[2016-07-07 16:59] LABS: UDS - AMPHET NEGATIVE QUAL (NEGATIVE); UDS - BARB NEGATIVE QUAL (NEGATIVE); UDS - BENZO POSITIVE QUAL (NEGATIVE); UDS - COCAINE NEGATIVE QUAL (NEGATIVE); UDS - METH NEGATIVE QUAL (NEGATIVE); UDS - OPIATE POSITIVE QUAL (NEGATIVE); UDS - PCP NEGATIVE QUAL (NEGATIVE); UDS - THC POSITIVE QUAL (NEGATIVE)
[2016-07-07 17:18] LABS: INR 2.09 (0.85-1.17); PROTIME 23.6 SECONDS (11.6-15.0)
[2016-07-07 17:26] LABS: APTT 28.7 SECONDS (22.8-39.4)
[2016-07-07 18:43] VITALS: BP 96/62; BMI 22.4
--- NOTE | 2016-07-07 18:49 | NUR ---
PT IS ALERT. ASSESSMENT DONE PER FLOWSHEET. NO OTHER NEEDS. RECIENVED FROM ER
[2016-07-07 21:39] VITALS: BP 96/52
--- NOTE | 2016-07-07 22:15 | NUR ---
IV TO RIGHT HAND OUT, TIP INTACT. IV RESITED TO RIGHT FOREARM, BY Magalis PEREA, 22 GAUGE, FIRST ATTEMPT.
[2016-07-08] VITALS (13 sets, daily range): BP systolic 89–157; BP diastolic 51–80; Ht 185.4 cm; Wt 67.7 kg
--- NOTE | 2016-07-08 00:15 | NUR ---
BS 314, COVERED PER S/S.
--- NOTE | 2016-07-08 02:37 | NUR ---
RESTING WITH EYES CLOSED, RESPERATIOSN EVEN, NO S/S DISTRESS NOTED.
[2016-07-08 05:42] LABS: BASOPHILS 0 % (0.0-2.0); EOSINOPHILS 0 % (0-7); HEMATOCRIT 38.7 % (42.0-54.0); HEMOGLOBIN 12.4 g/dL (13.5-17.5); IMMATURE GRANULOCYTES 0.1 % (0-5); MCH 26.4 pg (26.0-34.0); MEAN PLATELET VOLUME 11.9 fL (7.4-10.4); MONOCYTES 6.3 % (2-11); NEUTROPHILS 81.6 % (40-80); PLATELET COUNT 166 10x3/uL (130-400); RBC 4.69 10x6/uL (4.20-6.10); RDW 14.9 % (11.5-14.5); WBC 7.2 10x3/uL (4.8-10.8)
[2016-07-08 05:43] LABS: APTT 29.8 SECONDS (22.8-39.4); INR 1.85 (0.85-1.17); PROTIME 21.3 SECONDS (11.6-15.0)
[2016-07-08 05:51] LABS: MCV 82.5 fL (80.0-100.0)
[2016-07-08 06:28] LABS: ALBUMIN 2.8 g/dL (3.4-5.0); ALKALINE PHOSPHATASE 215 U/L (46-116); BILIRUBIN - DIRECT 1.09 mg/dL (0.00-0.30); BILIRUBIN - INDIRECT 0.61 mg/dL (0.00-1.00); CALC OSMOLALITY 305 mosm/kg (275-300); CALCIUM 8.5 mg/dL (8.5-10.1); CARBON DIOXIDE 26.1 mmol/L (21.0-32.0); CHLORIDE - SERUM 98 mmol/L (98-107); CKMB 2.5 U/L (0.0-3.6); CREATININE - SERUM 4.1 mg/dL (0.6-1.3); FERRITIN 128 ng/mL (3-244); GLUCOSE 279 mg/dL (74-106); MAGNESIUM - SERUM 2.8 mg/dL (1.8-2.4); POTASSIUM - SERUM 4.4 mmol/L (3.5-5.1); PROTEIN - SERUM 6.3 g/dL (6.4-8.2); SODIUM 137 mmol/L (136-145); UREA NITROGEN 75 mg/dL (7-18); eGFR NON AFRICAN AMERICAN 16 mL/min (90-120)
[2016-07-08 06:29] LABS: % SATURATION 4 % (15-55); IRON 16 ug/dl (35-150); TOTAL IRON BIND CAPACITY 332 ug/dl (260-445); UNSAT IRON BIND CAPACITY 316 ug/dl (150-375)
[2016-07-08 06:32] LABS: ALT (SGPT) 255 U/L (10-68); TROPONIN-I 1.228 ng/mL (0.000-0.060)
--- NOTE | 2016-07-08 07:42 | HP ---
PATIENT: ELENA RAMOS MEDICAL RECORD: [id number] ACCOUNT: [id number] LOCATION:[address] : [birth year] ADMISSION DATE: 07/07/16 HISTORY AND PHYSICAL EXAMINATION ADMISSION HISTORY AND PHYSICAL HISTORY OF PRESENT ILLNESS: A 55-year-old -Nigerien male presented to the Emergency Room with complaint of generalized abdominal pain and nausea that started yesterday. PAST MEDICAL HISTORY: Angina, CAD, anasarca advanced liver disease, cirrhosis, chronic renal insufficiency, diabetes mellitus, poor control and noncompliant with medical care, recently terminated by his primary care physician, Dr. Barone and numerous hospitalizations. ALLERGIES: No known drug allergies. CURRENT MEDICATIONS: Glyburide 5 mg b.i.d., Brilinta 90 mg, metformin 500 mg b.i.d., ____, Bystolic 10 mg daily, had recent cardiac intervention. FAMILY HISTORY: Noncontributory. SOCIAL HISTORY: Admits to alcohol use, marijuana use abuse, also with benzos and pain medication, as stated by himself, a former smoker. REVIEW OF SYSTEMS: GENERAL: No known change in weight, admits decreased appetite. HEENT: Denies cephalgia. Denies acute visual changes. Denies tinnitus, epistaxis or dysphagia. CARDIOVASCULAR: Denies present chest pain. Does admit to shortness of breath. PULMONARY: Denies hemoptysis. Denies night sweats. GASTROINTESTINAL: Admits diffuse abdominal pain. Denies hematemesis, hematochezia or melena. GENITOURINARY: Denies dysuria. MUSCULOSKELETAL: Complains of diffuse edema. ENDOCRINE: Denies polyuria, polydipsia, or polyphagia. PHYSICAL EXAMINATION: VITAL SIGNS: Temp 98.1, blood pressure is 96/62, heart rate 85, respirations 16 and O2 sats 99%. GENERAL: Alert, oriented, mild distress secondary to above. HEENT: Normocephalic and atraumatic. Ears: Canals are patent. Nose: Nares patent. Throat: No erythema, no exudates. NECK: Supple. No lymphadenopathy, no JVD. HEART: Regular rate and rhythm. LUNGS: Diminished breath sounds, right. Breathing sound labored. ABDOMEN: Soft, fluid wave positive. EXTREMITIES: Present times 4, pitting edema to the waist. NEUROLOGIC: No focal deficits. SKIN: Warm, dry. No rash. Does have stasis ulcers of lower extremities. LABORATORY DATA: Protime is 23.6, INR is 2.09 and PTT is 28.7. Ammonia is 16. ProBNP is 20,842. CBC: White count 6.1, hemoglobin 12.9, hematocrit 40.7 and platelets 168. Urinalysis: ____, pH 5.0, specific gravity 1.015, trace HISTORY AND PHYSICAL [id number] RAMOS,ELENA L protein, leukocyte esterase trace. Chemistry shows a sodium of 137, potassium 5.1, chloride 96, bicarbonate 24.7, BUN 65 and creatinine 3.7. Glucose 322. AST is 231 and ALT is 193. Urine drug screen positive for opiates, positive for benzos and positive for THC. CT abdomen and pelvis, no acute inflammatory or infectious process in the abdomen or pelvis, noncontrast study, moderate sized right pleural effusion with ascites in the abdomen and pelvis as well as moderate to severe anasarca. ASSESSMENT AND PLAN: 1. Abdominal pain with evidence of advanced to end-stage cirrhosis, anasarca, hepatorenal syndrome. 2. Congestive heart failure, recent cardiac workup intervention. 3. Ydizy-[id number]-[id number] renal failure, consult nephrology, immigration case manager for eventual placement, poor long-term prognosis, last ejection fraction listed as 30-35%, multiple comorbidities, very poor compliance, multiple hospitalizations and supportive care. We will consult interventional radiology for eval for thoracentesis with the significant pleural effusion. TRANSINT:[id number] Voice Confirmation ID: [id number] DOCUMENT ID: [id number] SERA DOHERTY DO at 0742 CC: [id number] DICTATION DATE: 07/07/161918 AUTOMATIC CASTING MACHINE OPERATOR: 07/07/167 ADM IN [facility] [address] [place] [address]
--- NOTE | 2016-07-08 08:20 | NUR ---
PT C/O SEVERE ABDOMINAL PAIN CRAMPING, MAINLY IN LLQ. PT REQUESTING SOMETHING FOR PAIN BUT HAS NO ORDERS. WILL CALL DOCTOR FOR ORDER. ASSISTED PT SITTING UP IN BED TO EAT BREAKFAST. PT REFUSED BREAKFAST TRAY REQUESTING TO HAVE CEREAL, ORDERED CEREAL WILL CTM.
--- NOTE | 2016-07-08 10:01 | NUR ---
SPOKE WITH AND HE SAID PT NEEDS TO BE SEEN BY GI AND IR CONSULTS FIRST BEFORE HE WANTS TO TREAT PAIN. PT HAS DRUG SCREEN POSITIVE FOR BENZO, OPIATES AND THC USE AND ISNT PRESCRIBED THOSE DRUGS SO WE WILL CONTINUE TO MONITER AND TRY NON-PHARM WAYS TO RELIEVE PAIN.
--- NOTE | 2016-07-08 10:19 | NUR ---
PT NEEDING CONSENTS FOR CT GUIDED THORENCENTESIS PT IS LEGALLY BLIND AND AWARE OF PROCEDURE BUT ASKED FOR A DOUBLE NURSE SIG ON CONSENTS AND STATES HE CANT SIGN THEM. CONSENTS DOUBLE WITNESSED AND OBTAINED IN THE CHART. IR STAFFING HERE NOW TO TAKE PT. NO FURTHER NEEDS. WILL CTM.
--- NOTE | 2016-07-08 11:30 | NUR ---
PT BACK FROM PROCEDURE. BP LOW AT 89/69 VIA L.ARM. PULSE 77, TEMP 98.0 AND O2SAT 100% WITH NC @3L. PT VERY LETHARGIC/DROWSY AT THIS TIME AND WOULD LIKE TO REST. VITALS BEING MONITERED CLOSELY AND RECORDED Q15. DRSG TO R.SIDE CDI NO S/S OF BLEEDING OR HEMATOMA AT SITE. WILL CTM.
--- NOTE | 2016-07-08 12:00 | NUR ---
FSBS 202 PT REC'D 4 UNITS OF INSULIN PER SS. PTS VSS BP STILL LOW BUT PT IN/OUT SLEEPING. RESTING QUIETLY. RR NONLABORED WITH NC @3L. NO FURTHER NEEDS AT THIS TIME. WILL CPOC.
--- NOTE | 2016-07-08 15:03 | NUR ---
PTS VSS STILL AFTER PROCEDURE AND RECORDED PER POLICY. TAPERED PTS NC DOWN TO 2L R/T HIS O2 SAT STAYING AROUND 97% PT STILL VERY LETHARGIC AND TIRED NOT WANTING TO WAKE UP OR DO ANYTHING. R.SIDE DRSG INTACT WITH SCANT AMOUNT OF BLOOD NOTED BUT DOESNT APPEAR TO BE CURRENTLY BLEEDING. PT REFUSED TO WEAR HIS SCDS. CL IN REACH, BED IN LOWEST, SIDE RAILS X2. WILL CTM.
[2016-07-08 16:53] LABS: LYMPH - BF 25 %; MACROPHAGES BF 36 %; MESOTHELIALS BF 2 %; NEUT - BF 37 %
--- NOTE | 2016-07-09 00:21 | NUR ---
RESTING WITH EYES CLOSED, RESPERATIONS EVEN, NO S/S DISTRESS NOTED.
[2016-07-09 00:41] VITALS: BP 88/65
--- NOTE | 2016-07-09 03:58 | NUR ---
OUTSOLE TACKER AT BEDSIDE TO OBTAIN VITALS, CALL LIGHT IN REACH. WILL CONTINUE WITH PLAN OF CARE.
[2016-07-09 06:09] LABS: BASOPHILS 0 % (0.0-2.0); EOSINOPHILS 0.1 % (0-7); HEMATOCRIT 37.1 % (42.0-54.0); HEMOGLOBIN 11.7 g/dL (13.5-17.5); IMMATURE GRANULOCYTES 0.3 % (0-5); LYMPHOCYTES 13.1 % (15-50); MCH 26.1 pg (26.0-34.0); MCHC 31.5 g/dL (31.0-37.0); MCV 82.6 fL (80.0-100.0); MEAN PLATELET VOLUME 11.9 fL (7.4-10.4); MONOCYTES 4.6 % (2-11); NEUTROPHILS 81.9 % (40-80); PLATELET COUNT 135 10x3/uL (130-400); RBC 4.49 10x6/uL (4.20-6.10); RDW 14.9 % (11.5-14.5); WBC 7.3 10x3/uL (4.8-10.8)
[2016-07-09 06:33] LABS: INR 1.63 (0.85-1.17); PROTIME 19.3 SECONDS (11.6-15.0)
[2016-07-09 06:48] LABS: ALBUMIN 2.5 g/dL (3.4-5.0); ALKALINE PHOSPHATASE 193 U/L (46-116); ALT (SGPT) 228 U/L (10-68); BILIRUBIN - DIRECT 1.15 mg/dL (0.00-0.30); BILIRUBIN - INDIRECT 0.45 mg/dL (0.00-1.00); CALCIUM 8.1 mg/dL (8.5-10.1); CARBON DIOXIDE 26.1 mmol/L (21.0-32.0); CHLORIDE - SERUM 102 mmol/L (98-107); CKMB 1.8 U/L (0.0-3.6); CREATININE - SERUM 3.4 mg/dL (0.6-1.3); MAGNESIUM - SERUM 2.5 mg/dL (1.8-2.4); PHOSPHOROUS 4.5 mg/dL (2.5-4.9); POTASSIUM - SERUM 4.1 mmol/L (3.5-5.1); PRO BNP 14389 pg/mL (0-125); PROTEIN - SERUM 5.4 g/dL (6.4-8.2); SODIUM 139 mmol/L (136-145); UREA NITROGEN 72 mg/dL (7-18); eGFR NON AFRICAN AMERICAN 20 mL/min (90-120)
[2016-07-09 06:49] LABS: CALC OSMOLALITY 301 mosm/kg (275-300); GLUCOSE 147 mg/dL (74-106); TROPONIN-I 0.869 ng/mL (0.000-0.060)
--- NOTE | 2016-07-09 08:13 | NUR ---
INTRODUCED MYSELF TO PT PRIMARY RN FOR TODAYS SHIFT. PT IS RESTING IN BED MOANING C/O ACHING PRESSURE PAINS IN HIS ABD MAINLY LLQ. PTS ABD IS DISTENDED AND TIGHT BS HEARD BUT HYPOACTIVE. PT CANT RECALL LAST BM. WILL TRY AND GET A STOOL SOFTNER FROM DOCTOR. ASSISTED PT SITTING UP IN BED AND SET UP BREAKFAST TRAY AND CEREAL PT IS LEGALLY BLIND AND NEEDS ASSISTANCE BUT CAN EAT ONCE SET UP. R.SIDE DRSG HAS SCANT BLOOD DRAINAGE BUT INTACT AND NO S/S OF HEMATOMA OR MORE BLEEDING NOTED. PT HAS BILAT SWELLING AND TIGHT EDEMA IN THIGHS CEDRIC TO KNEES. BILAT LEGS/FEET VERY DRY AND FLAKEY. PROVIDED PT WITH LOTION AND ELEVATED LEGS. R.FA PIV IS SL WITH SWAB CAPS IN USE. PT RESTING AND DENIES ANY FURTHER NEEDS AT THIS TIME. CL IN REACH, BED IN LOWEST, SIDE RAILS X2, BUILT IN BED ALARM ON. WILL CPOC.
[2016-07-09 09:12] VITALS: BP 106/74
[2016-07-09 09:15] LABS: ALPHA FETOPROTEIN -(TUMOR MRK) 2.6 ng/mL (0.0-8.3); ANA REFLEX - DIRECT Negative (Negative)
--- NOTE | 2016-07-09 10:59 | NUR ---
Rehab Note- Rehab Prescreen order received. The patient is Medicaid only and does not have IRF benefits. Thank you for this referal! Yumiko Coburn RN Clinical Liaison, [facility]
[2016-07-09 12:15] VITALS: BP 93/67
[2016-07-09 12:17] LABS: HEPATITIS C ANTIBODY <0.1 (0.0-0.9)
--- NOTE | 2016-07-09 12:43 | NUR ---
PT C/O NOT BEING ABLE TO EAT WITHOUT DENTURES. DENTURES TOO LOOSE FITTING NEEDING SOMETHING TO HELP THEM STICK. ORDERED DENTAL ADHESIVE AND WILL ASSIST PT.
[2016-07-09 14:28] LABS: APPEARANCE HAZY (CLEAR); BILIRUBIN NEGATIVE (NEGATIVE); COLOR YELLOW (YELLOW); GLUCOSE NEGATIVE (NEGATIVE); KETONE NEGATIVE (NEGATIVE); LEUKOCYTE ESTERASE TRACE (NEGATIVE); NITRITE NEGATIVE (NEGATIVE); PROTEIN NEGATIVE (NEGATIVE); SPECIFIC GRAVITY 1.015 (1.005-1.020); UROBILINOGEN NORMAL (NORMAL)
[2016-07-09 14:29] LABS: BACTERIA FEW /hpf (NONE SEEN); EPITHELIAL CELLS RARE /hpf (0-5); MUCUS <1+ /lpf (NONE SEEN); RED CELLS - URINE >50 /hpf (0-5); WHITE CELLS - URINE 0-5 /hpf (0-5)
[2016-07-09 14:47] LABS: CREATININE - URINE 75.8 mg/dL (30-125); POTASSIUM - URINE 29.9 MMOL/L (12.0-62.0); PRO/CRE RATIO URINE 0.3 mg/g; PROTEIN - URINE 23.9 mg/dL (0.0-11.9)
[2016-07-09 15:58] VITALS: BP 101/68
[2016-07-09 17:11] LABS: AFB SPECIMEN PROCESSING Concentration (())
--- NOTE | 2016-07-09 18:36 | CN ---
PATIENT NAME:ELENA RAMOS MEDICAL RECORD: [id number] : 56 LOCATION:D. D.2130 ADMIT DATE: 07/07/16 ACCOUNT: [id number] CONSULTING PHYSICIAN: AN GRADY MD REFERRING PHYSICIAN: SERA NOLEN DO DATE OF CONSULTATION: 07/08/2016 REFERRING PHYSICIAN: Dr. Nolen. HISTORY OF PRESENT ILLNESS: The patient is a 55-year-old black male well known to me with severe cardiomyopathy with EF of about 10%, coronary artery disease, status post recent stenting about a month ago, and nearing end-stage renal disease. His baseline creatinine is rapidly risen from about 1.84, who comes well as having MS, basically was admitted with vague abdominal pain over the past day or so. I was asked to see the patient in this regard. I saw this man in last October with an episode of nausea, vomiting and hematemesis. This led to an EGD which revealed mild distal reflux-induced ulcerative esophagitis, but otherwise normal exam. He was told to start Protonix and take it 40 mg b.i.d. for a month, then daily indefinitely. I have not seen him since. Interestingly enough, he was admitted last night and had a CT of the abdomen and pelvis done which revealed a pleural effusion on the right side, but otherwise basically negative exam other than moderate diffuse anasarca. The liver was read out as having a normal contour. He had possible sludge in the gallbladder, spleen, and pancreas; adrenal glands were essentially normal as his kidneys looked okay as well. He has undergone ____ morning and his abdominal pain is all but resolved. He does seem to be in mild to moderate diffuse distress and is not a very good historian at all. PAST MEDICAL HISTORY: As above. He also has diabetes, hypertension and apparently is blind. He also has glaucoma. PAST SURGICAL HISTORY: Remarkable for left toe amputation and multiple PTCA with stent placement. ALLERGIES: No known drug allergies. HOME MEDICATIONS: A little unclear. Written down include Effient, Mobic, Protonix 40 mg daily, metformin, glyburide, aspirin, Lasix, pravastatin, allopurinol, Alphagan eyedrops, Micronase, Pepto-Bismol. Currently, he is on insulin, Lasix 40 mg daily, Coreg and normal saline. I just added Protonix. SOCIAL HISTORY: The patient smokes marijuana. He denies alcohol use. REVIEW OF SYSTEMS: Noncontributory other than in the HPI. PHYSICAL EXAMINATION: GENERAL: Reveals a chronically ill-appearing middle-aged black male in mild to moderate distress. VITAL SIGNS: Stable, afebrile. CHEST: Clear. HEART: Regular rate and rhythm. ABDOMEN: Soft with minimal if any tenderness present. CONSULT REPORT [id number] ELENA RAMOS EXTREMITIES: Reveal 2+ chronic edema. LABORATORY DATA: On admission revealed normal electrolytes, BUN 65, creatinine 3.7, total bilirubin 1.8, AST 231, ALT 193, alkaline phosphatase 251, proBNP is markedly elevated at 21,000. Albumin is 3.2. INR is 2.09. White count 6000, hematocrit 40, MCV of 84, platelet count 168,000. Iron saturation is low at 4%, ferritin was okay at 128. CT is as above. IMPRESSION: 1. Vague abdominal pain, already essentially resolved. Unclear etiology. I suspect this is some type of cardiac or ischemic-related event. Cannot rule out obstipation. 2. Severe cardiomyopathy with an EF of 10%. 3. Known history of reflux esophagitis from gastroesophageal reflux disease. He has not had no varices seen on recent EGD last October as noted above. 4. Elevated liver enzymes were seen to be a new finding. I suspect this is cardiac in origin. He has no history of any alcohol use or liver disease in the past. 5. Anasarca on CT of the abdomen. Again, I think this is renal and cardiac in origin. 6. Severe near end-stage renal disease. This is also obviously playing a major role here. RECOMMENDATION: 1. KUB to rule out obstipation. 2. Avoid all NSAIDs, ____ on Mobic. 3. Long-term Protonix. 4. Renal consultation. 5. Gentle diuresis. 6. We will go ahead and check routine "liver lab" as noted above, I do not think his liver issue per se. 7. He is a very poor long-term prognosis. TRANSINT:[id number] Voice Confirmation ID: [id number] DOCUMENT ID: [id number] AN GRADY MD at 1050 CC: SERA NOLEN DO [id number] DICTATION DATE: 07/08/16 1536 DIRECTOR SPECIAL EDUCATION: 07/08/16 2317 ADM IN [facility] [address] [facility]
--- NOTE | 2016-07-09 19:50 | NUR ---
ASSESSMENT COMPLETE, A&O, RESPERATIONS EVEN ON O2 AT 2 LITER. IV TO RIGHT FOREARM SL, SITE CLEAN AND DRY. DANIEL DRAINING TO GRAVITY. BED LOW, CL IN REACH.
[2016-07-10 02:28] VITALS: BP 81/55
--- NOTE | 2016-07-10 03:52 | NUR ---
RESTING WITH EYES CLOSED, RESPERATIONS EVEN, NO S/S DISTRESS NOTED.
[2016-07-10 05:19] LABS: BASOPHILS 0 % (0.0-2.0); EOSINOPHILS 0 % (0-7); HEMOGLOBIN 11.8 g/dL (13.5-17.5); IMMATURE GRANULOCYTES 0.6 % (0-5); LYMPHOCYTES 7.1 % (15-50); MCH 26.2 pg (26.0-34.0); MCHC 31.1 g/dL (31.0-37.0); MCV 84.4 fL (80.0-100.0); MONOCYTES 15.4 % (2-11); NEUTROPHILS 76.9 % (40-80); PLATELET COUNT 132 10x3/uL (130-400); RDW 15.4 % (11.5-14.5); WBC 6.7 10x3/uL (4.8-10.8)
[2016-07-10 05:28] LABS: APTT 30.6 SECONDS (22.8-39.4); INR 1.79 (0.85-1.17); PROTIME 20.8 SECONDS (11.6-15.0)
--- NOTE | 2016-07-10 05:31 | NUR ---
CALL LIGHT IN REACH. WILL CONTINUE WITH PLAN OF CARE.
[2016-07-10 05:54] LABS: ALBUMIN 2.6 g/dL (3.4-5.0); ALKALINE PHOSPHATASE 192 U/L (46-116); AMYLASE - SERUM 25 U/L (25-115); BILIRUBIN - DIRECT 1.51 mg/dL (0.00-0.30); BILIRUBIN - INDIRECT 0.67 mg/dL (0.00-1.00); BILIRUBIN - TOTAL 2.18 mg/dL (0.2-1.3); CALC OSMOLALITY 302 mosm/kg (275-300); CALCIUM 8.9 mg/dL (8.5-10.1); CARBON DIOXIDE 25.9 mmol/L (21.0-32.0); CHLORIDE - SERUM 100 mmol/L (98-107); CKMB 0.7 U/L (0.0-3.6); CREATININE - SERUM 3.8 mg/dL (0.6-1.3); GLUCOSE 170 mg/dL (74-106); LIPASE 269 U/L (73-393); MAGNESIUM - SERUM 2.7 mg/dL (1.8-2.4); POTASSIUM - SERUM 4.6 mmol/L (3.5-5.1); PROTEIN - SERUM 5.9 g/dL (6.4-8.2); SODIUM 138 mmol/L (136-145); UREA NITROGEN 76 mg/dL (7-18); eGFR NON AFRICAN AMERICAN 18 mL/min (90-120)
[2016-07-10 05:59] LABS: ALT (SGPT) 356 U/L (10-68); PHOSPHOROUS 5.7 mg/dL (2.5-4.9)
[2016-07-10 08:10] VITALS: BP 93/62
--- NOTE | 2016-07-10 10:57 | NUR ---
Nutrition Follow Up: Chart reviewed. Noted pt with poor prognosis. Diet: Renal ADA Mech Soft Po Intake: 26% (6 meal avg) I>O Wt loss 38# since admit?? Labs: BUN, Cr, Glucose, Phos, Mag elevated Meds: Humulin, Protonix, Zofran Pt with poor po intake. Rec consider liberalizing diet to encourage po intake. Will continue to provide selective menus and honor food perferences within diet ordered. RD following.
[2016-07-10 12:14] VITALS: BP 97/63
[2016-07-10 13:18] LABS: FUNGUS STAIN Final report (())
[2016-07-10 13:18] LABS: SMOOTH MUSCLE ABS (ACTIN) 11 Units (0-19)
[2016-07-10 15:54] VITALS: BP 97/68
--- NOTE | 2016-07-10 16:42 | NUR ---
Patient Name: ELENA RAMOS Admission Status: ER Accout number: [id number] Admission Date: 07-07-2016 : 1960 Admission Diagnosis:UNSPECIFIED ABDOMINAL PAIN Attending: DOT Current LOS: 3 Anticipated DC Date: Planned Disposition: Nursing Facility [facility] Cert Primary Insurance: MEDICAID [place] PLANNED EXTERNAL PROVIDER: [facility], ANDREA VALDES; TRAINING REPRESENTATIVE CARE MEDICAID BED Discharge Planning Comments: * Is the patient Alert and Oriented? Yes 0 * How many steps to enter\exit or inside your home? 3 0 * PCP [facility] 0 * Pharmacy [facility] 0 * Preadmission Environment Home Alone 0 * ADLs Partial Dependent 0 * Partial ADLs (Assistance needed) Medication Management 0 * Equipment Cane Walker 0 * Other Equipment NO MEDICAL EQUIPMENT PROVIDER PREFERENCE 0 * List name and contact numbers for known caregivers / representatives who currently or will assist patient after discharge: BRYSON BARBOSA, FRIEND, 0 * Community resources currently utilized None 0 * Please name any agencies selected above. NONE 0 * Additional services required to return to the preadmission environment? Yes * Can the patient safely return to the preadmission environment? Yes 0 * Has this patient been hospitalized within the prior 30 days at any hospital? Yes 0 CM MET WITH PT IN ROOM TO DISCUSS DISCHARGE PLANNING AND NEEDS. PT REPORTS LIVING AT HOME WITH ASSISTANCE OF [place]. PT REPORTS HIS PEICE OF [place] SON NO LONG COMES BY OR HELPS HIM. PT HAS A WALKER THAT HE DOES NOT USE AND HE HAS A CANE THAT HE DOES USE. PT HAS NO MEDICAL EQUIPMENT PROVIDER AND NO OUTSIDE SERVICES ASSISTING IN THE HOME. CM DISCUSSED AVAILABILITY OF HOME HEALTH, REHAB SERVICES AND MEDICAL EQUIPMENT. PT REPORTS HE CANNOT TAKE CARE OF HIMSELF AT HOME AND NEEDS [facility] CARE IN A ALF. PT DENIES MENTAL ILLNESS OR HISTORY OF SEIZURES. PT DENIES PREVIOUS ALF PLACEMENT. PT REPORTS DISABILITY INCOME OF $700 PER MONTH FOR BLINDNESS WITH NO OTHER ASSETS OR INCOME. PT SIGNED CHOICE FOR REFERRALS TO [facility]. CM CALLED ELLIOT, CLINICAL LIAISON FOR [facility], , PROVIDED REFERRAL INFORMATION. CM FAXED REFERRAL TO [phone]. CM WAITING SCREENING FOR TRAINING REPRESENTATIVE CARE AND ADMISSION DETERMINATION FROM [facility]. Slip Maker: Alexx Anand
[2016-07-10 20:00] VITALS: BP 86/66
[2016-07-11] VITALS: BP 89/58; BP 90/57
--- NOTE | 2016-07-11 03:24 | NUR ---
PT ASSESSMENT AND BEDSIDE SHIFT REPORT COMPLETED NO DISTRESS OBSERVED PT SITTING UP IN CHAIR AT BED SIDE AND BEDSIDE TABLE IN ROOM INFRONT OF PT PT ORIENTATED TO PLACEMENT OF CUPS AND CALL LIGHT ON TABLE. RESPERATIONS EVEN AND UNLABORED ON ROOM AIR WILL MONITOR
[2016-07-11 05:53] LABS: BASOPHILS 0 % (0.0-2.0); HEMATOCRIT 36.9 % (42.0-54.0); HEMOGLOBIN 11.6 g/dL (13.5-17.5); IMMATURE GRANULOCYTES 0.2 % (0-5); LYMPHOCYTES 11.2 % (15-50); MCH 26.4 pg (26.0-34.0); MCHC 31.4 g/dL (31.0-37.0); MCV 83.9 fL (80.0-100.0); MEAN PLATELET VOLUME 11.7 fL (7.4-10.4); MONOCYTES 17.5 % (2-11); NEUTROPHILS 69.1 % (40-80); PLATELET COUNT 113 10x3/uL (130-400); RDW 15.5 % (11.5-14.5)
[2016-07-11 05:55] LABS: WBC 4.6 10x3/uL (4.8-10.8)
[2016-07-11 06:08] LABS: ALBUMIN 2.5 g/dL (3.4-5.0); ANION GAP 12.5 mmol/L (8-16); CALCIUM 8.8 mg/dL (8.5-10.1); CARBON DIOXIDE 28.8 mmol/L (21.0-32.0); CREATININE - SERUM 3.8 mg/dL (0.6-1.3); MAGNESIUM - SERUM 2.7 mg/dL (1.8-2.4); PHOSPHOROUS 5.4 mg/dL (2.5-4.9); POTASSIUM - SERUM 4.3 mmol/L (3.5-5.1); PROTEIN - SERUM 5.9 g/dL (6.4-8.2)
[2016-07-11 08:12] VITALS: BP 104/70
[2016-07-11 12:03] VITALS: BP 96/70
[2016-07-11 16:22] VITALS: BP 99/71
[2016-07-11 21:48] VITALS: BP 101/68
--- NOTE | 2016-07-11 22:38 | NUR ---
PT SITTING IN CHAIR AT BEDSIDE NO DISTRESS OBSERVED RESPERATIONS EVEN AND UNLABORED ON 2LNC PT DENIES NEEDS OR WANTS AT THIS TIME IVP SALINE LOCKED TO LEFT FOREARM NO INFILTRATION OR REDNESS OBSERVED FLUSHED WITH 10CC NORMAL SALINE. CALL LIGHT IN REACH SRX2 BED LOW AND LOCKED WILL MONITOR
[2016-07-12 00:30] VITALS: BP 110/56
[2016-07-12 04:30] VITALS: BP 115/60
[2016-07-12 06:20] LABS: BASOPHILS 0.2 % (0.0-2.0); EOSINOPHILS 1.8 % (0-7); HEMOGLOBIN 12.8 g/dL (13.5-17.5); IMMATURE GRANULOCYTES 0.2 % (0-5); LYMPHOCYTES 8.6 % (15-50); MCH 26.6 pg (26.0-34.0); MEAN PLATELET VOLUME 11.8 fL (7.4-10.4); MONOCYTES 14.7 % (2-11); NEUTROPHILS 74.5 % (40-80); PLATELET COUNT 119 10x3/uL (130-400); RBC 4.82 10x6/uL (4.20-6.10); RDW 15.4 % (11.5-14.5); WBC 5.5 10x3/uL (4.8-10.8)
[2016-07-12 06:40] LABS: ALBUMIN 2.5 g/dL (3.4-5.0); ANION GAP 13.7 mmol/L (8-16); BILIRUBIN - TOTAL 2.3 mg/dL (0.2-1.3); CARBON DIOXIDE 29.1 mmol/L (21.0-32.0); CREATININE - SERUM 3.1 mg/dL (0.6-1.3); MAGNESIUM - SERUM 2.5 mg/dL (1.8-2.4); POTASSIUM - SERUM 3.8 mmol/L (3.5-5.1); PROTEIN - SERUM 6.3 g/dL (6.4-8.2)
--- NOTE | 2016-07-12 07:40 | NUR ---
ASSESSMENT DONE. DENIES NEEDS.
[2016-07-12 08:01] VITALS: BP 99/72
--- NOTE | 2016-07-12 09:44 | NUR ---
SITTING UP SOB. CALL LIGHT IN REACH. WILL CONT. PLAN OF CARE.
[2016-07-12 12:00] VITALS: BP 101/76
[2016-07-12 14:00] VITALS: BP 96/66
--- NOTE | 2016-07-12 16:57 | NUR ---
WITHOUT CHANGES OR DISTRESS NOTED AT THIS TIME. DENIES NEEDS
[2016-07-12 20:30] VITALS: BP 97/67
--- NOTE | 2016-07-12 20:49 | NUR ---
PT VERY RUDE TO ME I WAS DOING ROUNDS CHECKING ON HIM. STATES MY THROAT IS SORE WHERE IS MY SPRAY. EXPLAINED TO PT I WAS NOT HIS NURSE TODAY AND I WASNT AWARE HE HAD A SORE THROAT BUT I WOULD BRING HIM SOME SPRAY IT WAS ORDERED. PT MUMBLED UNDER HIS BREATH SOMETHING AND TURNED HIS HEAD WITH HIS ATTITUDE. PT IS USUALLY VERY RUDE TO ALL STAFF AND THIS IS HIS NORMAL BEHAVIOR. PT DENIES ANY FURTHER NEEDS AND STATED JUST CLOSE MY DOOR AND LEAVE. CL IN REACH, DOOR CLOSED. WILL CTM.
--- NOTE | 2016-07-12 22:29 | NUR ---
RESUMED CARE OF PT AT THIS TIME FROM CASSI AND PT LAYING IN BED NO DISTRESS OBSERVED AT THIS TIME CALL LIGHT IN REACH SRX2 RESPERATIONS EVEN AND UNLABORED ON ROOM AIR PT INFOMRED OF POSSIBLE DC IN AM WILL CONTINUE TO MONITOR
[2016-07-13 00:30] VITALS: BP 101/59
--- NOTE | 2016-07-13 01:16 | NUR ---
PT LAYING IN BED EYES CLOSED PT APPERS TO BE SLEEPING RESPERATIONS EVEN AND UNLABORED ON ROOM AIR CALL LIGHT IN REACH SRX2 BED LOW AND LOCKED WILL MONITOR
[2016-07-13 04:30] VITALS: BP 98/62
[2016-07-13 05:01] LABS: BASOPHILS 0.2 % (0.0-2.0); EOSINOPHILS 1.7 % (0-7); HEMATOCRIT 40.4 % (42.0-54.0); HEMOGLOBIN 12.8 g/dL (13.5-17.5); IMMATURE GRANULOCYTES 0.3 % (0-5); MCH 26.3 pg (26.0-34.0); MCHC 31.7 g/dL (31.0-37.0); MEAN PLATELET VOLUME 11.4 fL (7.4-10.4); MONOCYTES 14.3 % (2-11); NEUTROPHILS 76.5 % (40-80); PLATELET COUNT 134 10x3/uL (130-400); RBC 4.87 10x6/uL (4.20-6.10); RDW 15.1 % (11.5-14.5); WBC 6.6 10x3/uL (4.8-10.8)
[2016-07-13 05:18] LABS: ALBUMIN 2.5 g/dL (3.4-5.0); ANION GAP 10.2 mmol/L (8-16); BILIRUBIN - TOTAL 2.46 mg/dL (0.2-1.3); CALCIUM 9.1 mg/dL (8.5-10.1); CARBON DIOXIDE 34.3 mmol/L (21.0-32.0); CREATININE - SERUM 2.5 mg/dL (0.6-1.3); POTASSIUM - SERUM 3.5 mmol/L (3.5-5.1); PROTEIN - SERUM 6.5 g/dL (6.4-8.2)
--- NOTE | 2016-07-13 06:40 | NUR ---
RECEIVED REPORT FROM DECK ENGINEER NURSE, ROMULO RYDER. PT IN BED, STATES THAT HE IS BEING DISCHARGE TODAY, ASKED ME TO HELP HIM MAKE A PHONE CALL. PT DENIES ANY OTHER NEEDS AT THIS TIME. CALL LIGHT IN REACH, NAD NOTED, WILL CONTINUE TO MONITOR.
[2016-07-13] MEDS ORDERED: NITROQUICK0.4 MG SL (06:48)
[2016-07-13] MEDS ORDERED: PROTONIX I40 MG/VIAL PO (06:49)
[2016-07-13] MEDS ORDERED: BUMEX2 MG PO (06:51)
[2016-07-13] MEDS ORDERED: POTASSIUM CHLO10 ME1 PO (06:51)
[2016-07-13 08:00] VITALS: BP 96/68
--- NOTE | 2016-07-13 08:31 | NUR ---
ADMINSITERED NORCO 5MG FOR PAIN LEVEL OF 8/10. PT UP TO SIDE OF BED, STATES HE IS READY TO GO HOME. D/C HEART MONITOR, INFORMED PT THAT I WILL D/C WHEN DISCHARGE PAPERS ARE AVAILABLE. PT DENIES ANY OTHER NEEDS AT THIS TIME. CALL LIGHT IN REACH, NAD NOTED, WILL CONTINUE TO MONITOR.
--- NOTE | 2016-07-13 11:10 | NUR ---
PROVIDED WRITTEN AND VERBAL DISCHARGE INSTRUCTIONS TO PT AND SON. BOTH VERBALIZED UNDERSTANDING REGARDING DISCHARGE TEACHING. D/C RIGHT FOREARM IV, TIP INTACT. PT READY FOR A WHEELCHAIR.
--- NOTE | 2016-07-13 11:23 | NUR ---
PT LEFT UNIT VIA WHEELCHAIR, ACCOMPANIED BY SON, NAD NOTED.
--- NOTE | 2016-07-17 11:11 | EC ---
PATIENT:ELENA RAMOS DATE OF SERVICE: 07/07/16 SEX: M MEDICAL RECORD: [id number] DATE OF : [birth year] LOCATION:D. D.213 AGE OF PATIENT: 55 ADMISSION DATE: 07/07/16 REFERRING PHYSICIAN: INTERPRETING PHYSICIAN: ALIX VICENTE MD ECHOCARDIOGRAM REPORT ECHO CHARGES 4 ECHO COMPLETE CLINICAL DIAGNOSIS: SOB ECHOCARDIOGRAPHIC MEASUREMENTS (adult normal given) AC root (d.<3.7cm) 2.9 LV Septum d (<1.2 cm> 1.2 Valve Excursion 1.8 LV Septum (systole) 1.5 Left Atria (s.<4.0cm> 4.6 LVPW d(<1.2cm) 1.2 RV (d.<2.3cm) 3.1 LVPW (sytole) 1.6 LV diastole(<5.6CM) 5.6 MV E-F(>70mm/sec) LV systole 4.1 LVOT Diameter 1.9 MV exc.(>10mm) Est.ejection fraction (50-75%) Pericardial Effusion N DOPPLER: LVIT A E 83.0 LA RVSP 39.0 LVOT 40.0 AOP1/2T Asc. Ao 81.0 RVOT 52.0 RA PA 48.0 AV Gradient Peak 2.6 AV Mean 1.1 AV Area 1.9 MV Gradient Peak 3.3 MV Mean 1.3 MV Area COMMENTS: Freelance Director: Jacquie ALEJANDREOE Pump Tender:Mohsen Soto TAPE# PACS DATE OF SERVICE: 07/08/2016 Echocardiogram FINDINGS: 1. Left ventricular chamber size is upper limits of normal, left ventricular systolic function is markedly reduced, overall ejection fraction is 25%. 2. Left atrium is enlarged at 4.6 cm. Right atrium and right ventricular chamber sizes are as well dilated giving 4-chamber dilatation. 3. Valvular structures have normal structure and motion. ECHOCARDIOGRAM REPORT [id number] ELENA RAMOS 4. Doppler interrogation reveals severe mitral regurgitation, severe tricuspid regurgitation, no other valvular insufficiency or stenosis and pulmonary systolic pressure is preserved at 39 mmHg. 5. No evidence of pericardial effusion or left ventricular thrombus. TRANSINT:[id number] Voice Confirmation ID: [id number] DOCUMENT ID: [id number] 07/16/2016 Edited to correct date of service, dmm. ALIX VICENTE MD at 1111 CC: [id number] DICTATION DATE: 07/09/16 174 EGG SMELLER: 07/09/168 DIS IN 07/13/16 [place] [id number] [place] [address]
[2016-08-10 07:09] LABS: FUNGUS MYCOLOGY CULTURE Final report (())
[2016-08-27 12:16] LABS: ACID FAST CULTURE Negative (()); ACID FAST SMEAR Negative (())
== END 2016-07-13 11:24 | disposition home or self-care (01) | DRG 433 ==
LOC: D.ER 11:38 → D.M2 16:55
PROVIDERS: Emergency Medicine; Family Medicine; General Practice; Internal Medicine; Internal Medicine Gastroenterology; Nurse Practitioner Acute Care; ADMIT Family Medicine
PROC: 0W993ZZ Drainage of Right Pleural Cavity, Percutaneous Approach (ICD-10-PCS; principal; 2016-07-08 10:30)
DX: K74.60 Unspecified cirrhosis of liver (principal); I42.9 Cardiomyopathy, unspecified; J90 Pleural effusion, not elsewhere classified; I13.0 Hypertensive heart and chronic kidney disease with heart failure and stage 1 through stage 4 chronic kidney disease, or unspecified chronic kidney disease; N18.4 Chronic kidney disease, stage 4 (severe); N17.9 Acute kidney failure, unspecified; D50.9 Iron deficiency anemia, unspecified; I25.10 Atherosclerotic heart disease of native coronary artery without angina pectoris; E11.22 Type 2 diabetes mellitus with diabetic chronic kidney disease; I50.9 Heart failure, unspecified; Z91.19 Patient's noncompliance with other medical treatment and regimen

== ENCOUNTER 2016-07-25 05:29 | Emergency (ER) | payer MEDICAID ==
[2016-07-08 13:44] VITALS: BMI 22.4
[~2016-07-25 05:29] MED LIST changes: +BUMEX2 MG PO; +NITROQUICK0.4 MG SL; +POTASSIUM CHLO10 ME1 PO; +PROTONIX I40 MG/VIAL PO
[2016-07-25 06:14] LABS: APPEARANCE HAZY (CLEAR); BILIRUBIN NEGATIVE (NEGATIVE); COLOR YELLOW (YELLOW); GLUCOSE 1000 mg/dL (NEGATIVE); KETONE NEGATIVE (NEGATIVE); LEUKOCYTE ESTERASE NEGATIVE (NEGATIVE); NITRITE NEGATIVE (NEGATIVE); PROTEIN NEGATIVE (NEGATIVE); UROBILINOGEN NORMAL (NORMAL)
[2016-07-25 06:40] LABS: UDS - AMPHET NEGATIVE QUAL (NEGATIVE); UDS - BARB NEGATIVE QUAL (NEGATIVE); UDS - BENZO NEGATIVE QUAL (NEGATIVE); UDS - COCAINE NEGATIVE QUAL (NEGATIVE); UDS - METH NEGATIVE QUAL (NEGATIVE); UDS - OPIATE POSITIVE QUAL (NEGATIVE); UDS - PCP NEGATIVE QUAL (NEGATIVE); UDS - THC POSITIVE QUAL (NEGATIVE)
[2016-07-25 06:41] LABS: HEMATOCRIT 40.1 % (42.0-54.0); HEMOGLOBIN 12.7 g/dL (13.5-17.5); MCHC 31.7 g/dL (31.0-37.0); MCV 82.2 fL (80.0-100.0); RBC 4.88 10x6/uL (4.20-6.10); RDW 17.4 % (11.5-14.5)
[2016-07-25 06:42] LABS: KETONE - SERUM NEGATIVE (NEGATIVE)
[2016-07-25 06:57] LABS: PLATELET COUNT 62 10x3/uL (130-400)
[2016-07-25 06:58] LABS: WBC 1.5 10x3/uL (4.8-10.8)
[2016-07-25 07:00] LABS: APTT 36.9 SECONDS (22.8-39.4); PROTIME 22.7 SECONDS (11.6-15.0)
[2016-07-25 07:03] LABS: ALKALINE PHOSPHATASE 180 U/L (46-116); ALT (SGPT) 108 U/L (10-68); BILIRUBIN - TOTAL 5.78 mg/dL (0.2-1.3); CALCIUM 8.6 mg/dL (8.5-10.1); CARBON DIOXIDE 22.1 mmol/L (21.0-32.0); CHLORIDE - SERUM 96 mmol/L (98-107); CREATININE - SERUM 5.8 mg/dL (0.6-1.3); POTASSIUM - SERUM 4.7 mmol/L (3.5-5.1); PROTEIN - SERUM 5.2 g/dL (6.4-8.2); SODIUM 141 mmol/L (136-145); eGFR NON AFRICAN AMERICAN 11 mL/min (90-120)
[2016-07-25 07:07] LABS: UREA NITROGEN 167 mg/dL (7-18)
[2016-07-25 07:14] LABS: CRENATED CELLS 1+; LYMPHOCYTES 14 % (15-50); MONOCYTES 2 % (2-11); NEUTROPHILS 64 % (40-80); PLATELET ESTIMATE DECREASED; ROULEAUX OCC; TARGET CELLS OCC
[2016-07-25 07:25] LABS: AMYLASE - SERUM 12 U/L (25-115); LIPASE 655 U/L (73-393)
[2016-07-25 07:28] LABS: PRO BNP 1 pg/mL (0-125)
[2016-07-25 07:30] LABS: CALC OSMOLALITY 386 mosm/kg (275-300); GLUCOSE 1011 mg/dL (74-106)
[2016-07-25 07:32] LABS: TROPONIN-I 0.977 ng/mL (0.000-0.060)
[2016-07-25 07:59] LABS: CKMB 1.5 U/L (0.0-3.6); CREATINE KINASE 845 UL (21-232); MAGNESIUM - SERUM 3.5 mg/dL (1.8-2.4)
== END 2016-07-25 15:00 ==
LOC: D.ER 05:29
PROVIDERS: Emergency Medicine; Family Medicine
DX: R41.82 Altered mental status, unspecified (principal); E11.65 Type 2 diabetes mellitus with hyperglycemia; Z79.4 Long term (current) use of insulin; I25.10 Atherosclerotic heart disease of native coronary artery without angina pectoris; I50.9 Heart failure, unspecified; D64.9 Anemia, unspecified; E86.0 Dehydration; R00.1 Bradycardia, unspecified; I44.0 Atrioventricular block, first degree; I12.9 Hypertensive chronic kidney disease with stage 1 through stage 4 chronic kidney disease, or unspecified chronic kidney disease; N18.9 Chronic kidney disease, unspecified